=== PATIENT | female | born 1960 | race Caucasian/White ===

== ENCOUNTER 2017-12-03 04:44 | Outpatient (CLI) | payer MEDICARE | END 2017-12-03 23:59 | disposition home or self-care (01) | LOC: DIABETIC 04:44 | PROVIDERS: ATTEND Family Medicine | DX: E11.9 Type 2 diabetes mellitus without complications (principal); E78.5 Hyperlipidemia, unspecified | CPT/HCPCS: G0108 ==

== ENCOUNTER 2018-03-08 02:03 | Outpatient (CLI) | payer MEDICARE | END 2018-03-08 23:59 | disposition home or self-care (01) | LOC: DIABETIC 02:03 | PROVIDERS: ATTEND Family Medicine | DX: E11.9 Type 2 diabetes mellitus without complications (principal); E78.5 Hyperlipidemia, unspecified | CPT/HCPCS: G0108 ==

== ENCOUNTER 2018-07-20 00:57 | Outpatient (CLI) | payer MEDICARE | END 2018-07-20 23:59 | disposition home or self-care (01) | LOC: DIABETIC 00:57 | PROVIDERS: ATTEND Family Medicine | DX: E11.9 Type 2 diabetes mellitus without complications (principal); E78.5 Hyperlipidemia, unspecified; Z88.8 Allergy status to other drugs, medicaments and biological substances | CPT/HCPCS: G0108 ==

== ENCOUNTER 2018-10-20 03:40 | Outpatient (CLI) | payer MEDICARE | END 2018-10-20 23:59 | disposition home or self-care (01) | LOC: DIABETIC 03:40 | PROVIDERS: ATTEND Family Medicine | DX: E11.9 Type 2 diabetes mellitus without complications (principal); Z88.5 Allergy status to narcotic agent; Z88.6 Allergy status to analgesic agent; Z79.899 Other long term (current) drug therapy | CPT/HCPCS: G0108 ==

== ENCOUNTER 2018-12-15 10:16 | Inpatient (IN) | payer MEDICARE | END 2018-12-19 15:55 | disposition home or self-care (01) | LOC: ER 10:16 → SUR 3N 17:30 | DX: C18.9 Malignant neoplasm of colon, unspecified (principal); D64.9 Anemia, unspecified; F17.200 Nicotine dependence, unspecified, uncomplicated ==

== ENCOUNTER 2019-05-03 01:30 | Outpatient (CLI) | payer MEDICARE ==
[~2019-05-03 01:30] MED LIST: ATOR40TA PO; CYCL-1 PO; DOCU-28 PO; HYDR-3972 PO; LOSA25TA96 PO
== END 2019-05-03 23:59 | disposition home or self-care (01) ==
LOC: DIABETIC 01:30
PROVIDERS: ATTEND Family Medicine
DX: E11.9 Type 2 diabetes mellitus without complications (principal); I10 Essential (primary) hypertension; Z79.899 Other long term (current) drug therapy; Z88.8 Allergy status to other drugs, medicaments and biological substances
CPT/HCPCS: G0108

== ENCOUNTER 2020-11-25 11:34 | Emergency (ER) | payer MEDICARE ==
[~2020-11-25] VITALS: Ht 162.6 cm; Wt 97.7 kg
[2020-11-25 13:16] VITALS: BP 146/88
== END 2020-11-25 13:26 | disposition home or self-care (01) ==
LOC: ER 11:35
DX: K46.9 Unspecified abdominal hernia without obstruction or gangrene (principal); R10.84 Generalized abdominal pain; G89.29 Other chronic pain; Z98.51 Tubal ligation status; Z98.890 Other specified postprocedural states; Z88.8 Allergy status to other drugs, medicaments and biological substances; Z88.6 Allergy status to analgesic agent; Z79.899 Other long term (current) drug therapy
CPT/HCPCS: 99281

== ENCOUNTER 2021-07-16 07:20 | Day surgery (SDC) | payer MEDICARE ==
[2021-07-15 14:22] LABS: BASOPHILS % (AUTO) 0.4 % (0-1); EOSINOPHILS # (AUTO) 0.1 X10'3 (0-0.9); EOSINOPHILS % (AUTO) 1.6 % (0-6); LYMPHOCYTES % (AUTO) 24.7 % (21-51); MEAN CORPUSCULAR HEMOGLOBIN 31.4 PG (27.0-31.0); MEAN CORPUSCULAR HGB CONC 34.7 g/dL (33.0-36.5); MEAN CORPUSCULAR VOLUME 90.5 FL (78-98); MEAN PLATELET VOLUME 8.3 FL (7.4-10.4); MONOCYTES # (AUTO) 0.5 X10'3 (0-0.9); MONOCYTES % (AUTO) 6.2 % (2-12); NEUTROPHILS # (AUTO) 5.5 X10'3 (1.8-7.7); NEUTROPHILS % (AUTO) 67.1 % (42-75); PRE OP HEMATOCRIT 42.7 % (35.0-45.0); PRE OP HEMOGLOBIN 14.8 g/dL (12.0-16.0); PRE OP PLATELET COUNT 236 X10'3 (140-440); RED BLOOD COUNT 4.71 X10'6 (4.20-5.60); RED CELL DISTRIBUTION WIDTH 13.1 % (11.5-14.5)
[2021-07-15 14:44] LABS: ALBUMIN 3.9 G/DL (3.4-5.0); BLOOD UREA NITROGEN 13 MG/DL (7-18); BUN/CREATININE RATIO 15.9 (6.6-38.0); CALCIUM 9.3 MG/DL (8.5-10.1); CHLORIDE 102 MMOL/L (99-107); CREATININE 0.82 MG/DL (0.40-0.90); PRE OP ANION GAP 12 (8-16); PRE OP GLUCOSE 116 MG/DL (70-104); PRE OP POTASSIUM 4.2 MMOL/L (3.4-5.1); PRE OP SODIUM 138 MMOL/L (135-145); TOTAL CARBON DIOXIDE 24.4 MMOL/L (24-32); eGFR 72 ML/MIN
[2021-07-15 15:00] LABS: ALBUMIN/GLOBULIN RATIO 1.1 (1.1-1.5); ALKALINE PHOSPHATASE 60 IU/L (46-116); PRE OP ALT 58 U/L (30-65); PRE OP AST 24 U/L (10-37); PRE OP BILIRUB, TOTAL 0.8 MG/DL (0.0-1.0); TOTAL PROTEIN 7.6 G/DL (6.4-8.2)
[2021-07-16] VITALS (16 sets, daily range): BP systolic 123–138; BP diastolic 64–98
[~2021-07-16] VITALS: Ht 162.6 cm; Wt 97.1 kg
[~2021-07-16 07:20] MED LIST changes: +BUPIVAcaine/PF 2.5 mg/ml (0.25%) 30ml vial ONE; +BUPIVAcaine/PF 2.5mg/ml (0.25%) 10ml vial ONE; -DOCU-28 PO; +famotidine 20mg tablet PO ONE; +ringers solution, lacted 1,000 ML IV SCH
[2021-07-16] MEDS ORDERED: cefazolin/dext.iso 2gm/50ml IV ONE (09:30)
[2021-07-16] MEDS ORDERED: propofol inj 20 ML IV ONE (10:49)
[2021-07-16] MEDS ORDERED: rocuronium 10mg/ml inj IV ONE (10:49)
[2021-07-16] MEDS ORDERED: sevoflurane 250ml liquid IH ONE (11:12)
[2021-07-16] MEDS ORDERED: acetaminophen 1000 MG/100ml vial IV ONE (11:12)
[2021-07-16] MEDS ORDERED: midazolam 1 mg/ML 2ml injection ONE (11:14)
[2021-07-16] MEDS ORDERED: meperidine/PF 25mg/ml syringe IV PRN ×3 (11:15)
[2021-07-16] MEDS ORDERED: proCHLORperazine 10 MG/2 ml inj IV PRN (11:15)
[2021-07-16] MEDS ORDERED: ondansetron/PF 4mg/2ml inj IV PRN (11:15)
[2021-07-16] MEDS ORDERED: ringers solution, lacted 1,000 ML IV SCH (11:15)
[2021-07-16] MEDS ORDERED: morphine 4 MG/ML inj SYRINge IV PRN (11:15)
[2021-07-16] MEDS ORDERED: morphine 2 MG/ML inj. syringe IV PRN (11:15)
[2021-07-16] MEDS ORDERED: fentaNYL /PF 50mcg/ml 5ml ampule ONE (11:16)
[2021-07-16] MEDS ORDERED: neostigmine methylsulfate 1 MG/ML 10ml vial ONE (12:40)
[2021-07-16] MEDS ORDERED: glycopyrrolate 0.2mg/ml inj ONE (12:40)
[2021-07-16] MEDS ORDERED: fentaNYL/PF 50MCG/1 ML 2ML syringe ONE (12:45)
[2021-07-16] MEDS ORDERED: ondansetron/PF 4mg/2ml inj ONE (12:45)
[2021-07-16] MEDS ORDERED: dexamethasone sod phosphate 4mg/ml inj. ONE (12:45)
[2021-07-16] MEDS ORDERED: sugammadex 200mg/2ml injection IV ONE (12:49)
--- NOTE | 2021-07-16 12:56 | NUR ---
Received from OR via [facility], accompanied by Anesthesiologist DR CARRENO and report given by Anesthesiologist AND INSPECTOR AND HAND PACKAGER. PT DROWSY, DENIES PAIN, ABDOMEN W/5 LAP SITES W/DERMABOND CDI, PT HAS SMALL SKIN ABRASION ON MID UPPER LEFT ABD, INSPECTOR AND HAND PACKAGER STATES PT CAME IN WITH IT AND IT HAS BEEN DOCUMENTED AND PICTURES TAKEN PRIOR TO SX. Addendum: 07/16/21 at 1318 by Kamryn Chase RN Amended: Links added.
[2021-07-16] MEDS ORDERED: fentaNYL/PF 50MCG/1 ML 2ML syringe IV PRN ×2 (13:50)
[2021-07-16] MEDS ORDERED: ketorolac trometh. 30mg/ml inj. IV ONE (14:10)
[2021-07-16] MEDS ORDERED: oxyCODONE/APAP 10/325mg tablet PO ONE (14:30)
--- NOTE | 2021-07-16 15:23 | NUR ---
PT UP TO BATHROOM FOR VOID, STABLE ON FEET, PAIN TOLERABLE. PT AWAITING RIDE HOME, SITTING IN CHAIR. Addendum: 07/16/21 at 1524 by Kamryn Chase RN Amended: Links added.
--- NOTE | 2021-07-16 16:06 | NUR ---
PT REMAINS COMFORTABLE AMBULATING IN ROOM. D/C INSTRUCTIONS GIVEN AND GONE OVER W/PT WHO VERBALIZED UNDERSTANDING. PT D/CD TO HOME VIA W/C TO PRIVATE VEHICLE W/O INCIDENT. Addendum: 07/16/21 at 1620 by Kamryn Chase RN Amended: Links added.
== END 2021-07-16 16:06 | disposition home or self-care (01) ==
LOC: PAS 07:20
PROVIDERS: ATTEND Surgery
DX: K43.2 Incisional hernia without obstruction or gangrene (principal); K66.0 Peritoneal adhesions (postprocedural) (postinfection); M19.90 Unspecified osteoarthritis, unspecified site; G47.30 Sleep apnea, unspecified; I10 Essential (primary) hypertension; E11.40 Type 2 diabetes mellitus with diabetic neuropathy, unspecified; J44.9 Chronic obstructive pulmonary disease, unspecified; E66.9 Obesity, unspecified; Z68.36 Body mass index [BMI] 36.0-36.9, adult; Z79.899 Other long term (current) drug therapy; Z20.822 Contact with and (suspected) exposure to COVID-19; Z88.8 Allergy status to other drugs, medicaments and biological substances; Z85.038 Personal history of other malignant neoplasm of large intestine; F17.210 Nicotine dependence, cigarettes, uncomplicated; Z72.89 Other problems related to lifestyle; Z98.1 Arthrodesis status; Z98.51 Tubal ligation status; Z98.890 Other specified postprocedural states; Z90.721 Acquired absence of ovaries, unilateral; Z80.0 Family history of malignant neoplasm of digestive organs
CPT/HCPCS: 36415; 49654; 80053; 82948; 85025; 87635; 93005; C1713; C1781; C9803; J0131; J0690; J1100; J1885; J2250; J2405; J2704; J2710; J3010; J3490; J7030; J7120; Z7506; Z7508; Z7512; A4215; A4618; A7000